=== PATIENT | male | born 1935 | race Caucasian/White ===

== ENCOUNTER 2019-03-09 15:17 | Inpatient (IN) ==
[2019-03-09 15:43] LABS: Hematocrit 43.1 % (42.0-52.0); Hemoglobin 14.4 gm/dL (13.5-18.0); Mean Cell Volume 90.7 fl (78-100); Mean Corpuscular Hemoglobin 30.3 pg (27-31); Mean Corpuscular Hgb Conc 33.4 g/dl (32-36); Mean Platelet Volume 8.7 fl (8-11.3); Neutrophil # 6.7 K/mm3 (1.3-6.0); Neutrophil % 85.9 % (42-75.0); Platelet Count 353 K/mm3 (150-450); Red Blood Count 4.75 M/mm3 (4.7-6.0); Red Cell Distribution Width 13.5 % (11.5-14.0); White Blood Count 7.8 K/mm3 (4.0-10.5)
[2019-03-09 15:49] LABS: Anion Gap 10.3 mmol/L (6.8-13.8); BUN/Creatinine Ratio 15.3 (9.0-21.6); Blood Urea Nitrogen 11 mg/dL (6-23); Calcium * 8.9 mg/dL (7.9-10.9); Carbon Dioxide 31.2 mmol/L (24-32.6); Chloride 92 mmol/L (97-106); Glucose * 109 mg/dL (70-110); Potassium 3.5 mmol/L (3.4-4.6); Sodium 130 mmol/L (132-142)
[2019-03-09] MEDS ORDERED: ALBUTEROL SULFATE/IPRATROPIUM 3 ML NEBU IH PRN (17:38)
--- NOTE | 2019-03-09 17:39 | PN ---
Progess Note - Interim Date: 03/09/19 Time: 17:36 Narrative: 03/09/19 17:36 I saw the patient in the Med-Surg floor. He was admitted for Pneumonitis/Pneumonia with persistent cough, progressive generalized weakness, decreased appetite and failed outpatient treatment. My findings and plans remain the same and my Clinic Notes will serve as my H & P for this admission.
[2019-03-09] MEDS: NORMAL SALINE 1,000 ML IV PRN (18:46)
[2019-03-09] MEDS: CEFEPIME HCL 2 GM in DEXTROSE 5 % IN WATER 100 ML IV SCH ×2 (18:48)
[2019-03-09] MEDS: AZITHROMYCIN 250 MG TABLET PO SCH (18:50)
[2019-03-09] MEDS ORDERED: AZITHROMYCIN 250 MG TABLET PO ONE (19:15)
[2019-03-09] MEDS: amLODIPine BESYLATE 5 MG TABLET PO SCH (20:07)
[2019-03-09] MEDS: HYDROcodone/CHLORPHEN P-STIREX 5 ML UDC PO SCH (20:07)
[2019-03-09] MEDS: METOPROLOL SUCCINATE 50 MG TABLET.SA PO SCH (20:07)
[2019-03-09] MEDS: ROSUVASTATIN CALCIUM 10 MG TABLET PO SCH (20:07)
[2019-03-09] MEDS: TRAVOPROST 25 DROP BTL EACHEYE SCH (20:09)
[2019-03-10] MEDS: NORMAL SALINE 1,000 ML IV PRN ×2 (03:09→13:05)
[2019-03-10] MEDS: CEFEPIME HCL 2 GM in DEXTROSE 5 % IN WATER 100 ML IV SCH ×4 (05:34→20:43)
[2019-03-10] MEDS: HYDROcodone/CHLORPHEN P-STIREX 5 ML UDC PO SCH ×2 (06:53→20:09)
--- NOTE | 2019-03-10 07:59 | PN ---
Subjective - Date and Time Seen Date: 03/10/19 Time: 07:36 Subjective Narrative: patient had desaturations in the 80's last night. still with cough and shortness of breath visibly. Objective - Review of Systems Generalized/Overall Review: Reports: Weakness. Denies: Chills, Fever EENTM: Denies: Blurred Vision Respiratory: Reports: Cough, Shortness of Breath Cardiac: Reports: Edema. Denies: Chest Pain, Palpitations Abdominal: Denies: Nausea, Vomiting, Abdominal Pain Genitourinary Symptoms: Denies: Urgency, Frequency Musculoskeletal Complaints: Reports: Joint Pain Neurological: Denies: Headache Skin: Denies: Lesions, Rash Endocrine: Denies: Intolerance to Cold, Intolerance to Heat Misc: All systems neg except as marked - Vitals Vitals: Last Vital Signs Temp 36.9 C 03/10/19 06:21 Pulse 75 03/10/19 06:21 Resp 20 03/10/19 06:21 BP 127/68 03/10/19 06:21 Pulse Ox 95 03/10/19 06:21 - Abnormal Lab Findings Abnormal Lab Findings: Abnormal Lab Results 03/09/19 03/09/19 Range/Units 15:28 15:28 Immature Gran % (Auto) 1.90 H (0.001-0.429) % Immature Gran # (Auto) 0.15 H (0.000-0.0310) K/mm3 Neutrophils % 85.9 H (42-75.0) % Lymphocytes % 4.5 L (20-51) % Neutrophils # 6.7 H (1.3-6.0) K/mm3 Lymphocytes # 0.35 L (1.5-3.5) k/mm3 Sodium 130 L (132-142) mmol/L Chloride 92 L (97-106) mmol/L - Exam Constitutional: Present: Alert, Oriented x3, Cooperative ENT Exam: Present: hearing grossly normal Neck: Present: supple. Absent: lymphadenopathy (R), lymphadenopathy (L) Respiratory: Present: decreased breath sounds, crackles, rhonchi, wheezing - occasional Cardiovascular/Chest: Present: regular rate, rhythm, no JVD, no murmur Abdomen: Present: Normal bowel sounds, soft, nontender, nondistended Extremity: Present: no calf tenderness, lower extremity edema - LLE Assessment/Plan Plan Narrative: Morro is an 83-year-old white male who was admitted from my office for failure of outpatient treatment patient. He continued to be short of breath, coughing, with generalized weakness and decreased appetite. He was admitted and started on IV cefepime and continued with his azithromycin. He started having some desaturation last night and was put on oxygen 2 L nasal cannula. He will be admitted to acute status from observation. - Problems/Diagnosis (1) Pneumonitis Problem: Acute (2) Weakness generalized Problem: Acute (3) Cough Problem: Acute (4) Hyponatremia Problem: Acute (5) THOMAS (obstructive sleep apnea) Problem: Acute (6) Hyperlipidemia Problem: Chronic (7) Hypertension Problem: Chronic Qualifiers: (8) History of coronary artery bypass surgery Problem: Resolved (9) History of surgery for malignant neoplasm Problem: Resolved (10) S/P lobectomy of lung Problem: Resolved
[2019-03-10] MEDS: AZITHROMYCIN 250 MG TABLET PO SCH (08:48)
[2019-03-10] MEDS: LOSARTAN POTASSIUM 50 MG TABLET PO SCH (08:49)
[2019-03-10] MEDS: METOPROLOL SUCCINATE 50 MG TABLET.SA PO SCH ×2 (08:49→20:08)
[2019-03-10] MEDS: HYDROCHLOROTHIAZIDE 12.5 MG CAPSULE PO SCH (08:50)
[2019-03-10] MEDS: FINASTERIDE 5 MG TABLET PO SCH (08:50)
[2019-03-10] MEDS: ACETAMINOPHEN 500 MG TABLET PO PRN ×2 (08:53→20:29)
[2019-03-10] MEDS ORDERED: TAMSULOSIN HCL 0.4 MG CAP.SR.24H PO SCH (09:00)
[2019-03-10] MEDS ORDERED: AZITHROMYCIN 250 MG TABLET PO SCH (09:00)
[2019-03-10 13:24] LABS: Hematocrit 41.6 % (42.0-52.0); Hemoglobin 13.7 gm/dL (13.5-18.0); Mean Cell Volume 92.2 fl (78-100); Mean Corpuscular Hemoglobin 30.4 pg (27-31); Mean Corpuscular Hgb Conc 32.9 g/dl (32-36); Mean Platelet Volume 8.6 fl (8-11.3); Neutrophil # 4.9 K/mm3 (1.3-6.0); Neutrophil % 81.6 % (42-75.0); Platelet Count 322 K/mm3 (150-450); Red Blood Count 4.51 M/mm3 (4.7-6.0); Red Cell Distribution Width 13.6 % (11.5-14.0); White Blood Count 6.1 K/mm3 (4.0-10.5)
[2019-03-10 13:32] LABS: Anion Gap 7.2 mmol/L (6.8-13.8); BUN/Creatinine Ratio 12.3 (9.0-21.6); Calcium * 8.8 mg/dL (7.9-10.9); Carbon Dioxide 32.1 mmol/L (24-32.6); Estimated Creat Clear 80.6; Potassium 3.3 mmol/L (3.4-4.6)
[2019-03-10] MEDS: BENZONATATE 100 MG CAPSULE PO PRN (14:34)
[2019-03-10] MEDS: TAMSULOSIN HCL 0.4 MG CAP.SR.24H PO SCH (17:54)
[2019-03-10] MEDS: TRAVOPROST 25 DROP BTL EACHEYE SCH (20:06)
[2019-03-10] MEDS: ROSUVASTATIN CALCIUM 10 MG TABLET PO SCH (20:07)
[2019-03-10] MEDS: amLODIPine BESYLATE 5 MG TABLET PO SCH (20:07)
[2019-03-11] MEDS: BENZONATATE 100 MG CAPSULE PO PRN (00:54)
[2019-03-11 01:30] LABS: Urine Appearance Clear (CLEAR); Urine Bilirubin Negative (NEGATIVE); Urine Blood Negative /ul (NEGATIVE); Urine Color Yellow; Urine Ketone Negative (NEGATIVE); Urine Nitrite Negative (NEGATIVE); Urine Protein Negative (NEGATIVE); Urine Specific Gravity 1.015 SP.GR. (1.005-1.030); Urine Urobilinogen Normal (NORMAL); Urine pH 5.5 pH (5.0-7.0)
[2019-03-11 01:31] LABS: Urine Bacteria None Seen; Urine RBC None Seen /hpf (0-5); Urine WBC None Seen /hpf (0-5)
[2019-03-11] MEDS: CEFEPIME HCL 2 GM in DEXTROSE 5 % IN WATER 100 ML IV SCH ×4 (05:00→18:00)
[2019-03-11 05:54] LABS: Hematocrit 39.5 % (42.0-52.0); Hemoglobin 13.1 gm/dL (13.5-18.0); Mean Cell Volume 93.4 fl (78-100); Mean Corpuscular Hgb Conc 33.2 g/dl (32-36); Mean Platelet Volume 9.4 fl (8-11.3); Neutrophil # 4.6 K/mm3 (1.3-6.0); Neutrophil % 76.4 % (42-75.0); Platelet Count 354 K/mm3 (150-450); Red Blood Count 4.23 M/mm3 (4.7-6.0); Red Cell Distribution Width 13.5 % (11.5-14.0)
[2019-03-11] MEDS: HYDROcodone/CHLORPHEN P-STIREX 5 ML UDC PO SCH ×2 (06:27→18:44)
[2019-03-11 06:39] LABS: Albumin * 2.3 gm/dl (3.4-5.0); Anion Gap 6.2 mmol/L (6.8-13.8); BUN/Creatinine Ratio 20.7 (9.0-21.6); Bilirubin, Total 0.4 mg/dL (0.0-1.1); Carbon Dioxide 30.8 mmol/L (24-32.6); Total Protein 6.2 gm/dL (6.2-8.2)
[2019-03-11] MEDS: METOPROLOL SUCCINATE 50 MG TABLET.SA PO SCH ×2 (08:29→20:39)
[2019-03-11] MEDS: LOSARTAN POTASSIUM 50 MG TABLET PO SCH (08:29)
[2019-03-11] MEDS: FINASTERIDE 5 MG TABLET PO SCH (08:29)
[2019-03-11] MEDS: AZITHROMYCIN 250 MG TABLET PO SCH (08:29)
[2019-03-11] MEDS: HYDROCHLOROTHIAZIDE 12.5 MG CAPSULE PO SCH (08:29)
--- NOTE | 2019-03-11 12:22 | PN ---
Subjective - Date and Time Seen Date: 03/11/19 Time: 12:19 Subjective Narrative: No acute events overnight. Patient states he is feeling better since admission. Discussed his lab results and advised that he was improving. Discussed goals of weaning off oxygen by time of discharge. She states that his appetite is improved, initially it was poor prior to admission. His only concern is if he could get something to help break up the mucus as he feels congested. Ad visedpatient will prescribe N-acetylcysteine and this to help to break down mucus. Intake and output diet baseline. No fever or chills. No chest pain or shortness of breath. No other acute concerns. Objective - Review of Systems Generalized/Overall Review: Reports: No Symptoms Reported Respiratory: Reports: Cough, Shortness of Breath, Other - Ingestion Cardiac: Denies: Chest Pain, Edema, Palpitations Abdominal: Denies: Abdominal Pain - Vitals Vitals: Last Vital Signs Temp 36.2 C 03/11/19 10:00 Pulse 69 03/11/19 10:00 Resp 20 03/11/19 10:00 BP 136/70 03/11/19 10:00 Pulse Ox 93 03/11/19 10:00 - Abnormal Lab Findings Abnormal Lab Findings: Abnormal Lab Results 03/10/19 03/10/19 03/11/19 Range/Units 13:20 13:20 05:00 RBC 4.51 L 4.23 L (4.7-6.0) M/mm3 Hgb 13.1 L (13.5-18.0) gm/dL Hct 41.6 L 39.5 L (42.0-52.0) % Immature Gran % (Auto) 3.30 H 4.20 H (0.001-0.429) % Immature Gran # (Auto) 0.20 H 0.25 H (0.000-0.0310) K/mm3 Neutrophils % 81.6 H 76.4 H (42-75.0) % Lymphocytes % 5.5 L 7.7 L (20-51) % Lymphocytes # 0.33 L 0.46 L (1.5-3.5) k/mm3 Sodium 131 L (132-142) mmol/L Potassium 3.3 L (3.4-4.6) mmol/L Chloride 95 L (97-106) mmol/L Anion Gap (6.8-13.8) mmol/L Est GFR (Non-Af Amer) (60-130) mL/min Random Glucose 114 H (70-110) mg/dL Albumin (3.4-5.0) gm/dl 03/11/19 Range/Units 05:00 RBC (4.7-6.0) M/mm3 Hgb (13.5-18.0) gm/dL Hct (42.0-52.0) % Immature Gran % (Auto) (0.001-0.429) % Immature Gran # (Auto) (0.000-0.0310) K/mm3 Neutrophils % (42-75.0) % Lymphocytes % (20-51) % Lymphocytes # (1.5-3.5) k/mm3 Sodium (132-142) mmol/L Potassium (3.4-4.6) mmol/L Chloride (97-106) mmol/L Anion Gap 6.2 L (6.8-13.8) mmol/L Est GFR (Non-Af Amer) 143 H D (60-130) mL/min Random Glucose (70-110) mg/dL Albumin 2.3 L (3.4-5.0) gm/dl - EKG/Xray Findings EKG: NSR EKG read: Reviewed by me - Exam Constitutional: Present: Alert, Oriented x3, Cooperative, No distress ENT Exam: Present: hearing grossly normal Neck: Present: non-tender, full range of motion, supple, normal inspection Respiratory: Present: normal breath sounds, no respiratory distress, no accessory muscle use, decreased breath sounds - Right lower lobe, crackles - Right lower lobe Cardiovascular/Chest: Present: normal peripheral pulses, regular rate, rhythm, no murmur, edema - 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 No edema of the right lower extremity. Abdomen: Present: Normal bowel sounds, soft, nontender Extremity: Present: normal range of motion, non-tender, normal inspection Skin Exam: Present: normal color, warm/dry Neurologic: Present: alert, oriented x 3 Appearance: Present: appropriate appearance Assessment/Plan Plan Narrative: (1) Pneumonia Problem: Acute - Due to failed outpatient treatment, decompensated to did not requiring oxygen. On 2 L nasal cannula and saturating greater than 92% on room air -We will order RT to wean off oxygen as tolerated. - Continue Azithromycin day # 4 and Cefepime day # 2 -Continue incentive spirometry every 1 hour while awake - (2) Weakness generalized Problem: Acute - Improving - Will probably need PT upon discharge - Consider ordering PT tomorrow for evaluation on Wednesday AM (3) Cough associated congestion Problem: Acute -Improving -We will prescribe Mucinex (4) Hyponatremia Problem: Resolved (5) THOMAS (obstructive sleep apnea) Problem: Suspected -Sleep study completed however needs to be repeated, concern for sleep apnea -Patient doing well here (6) Hyperlipidemia Problem: Chronic (7) Hypertension Problem: Chronic Qualifiers: (8) History of coronary artery bypass surgery Problem: Resolved (9) History of surgery for malignant neoplasm Problem: Resolved (10) S/P lobectomy of lung Problem: Resolved Fluids electrolytes nutrition: Heart healthy diet DVT prophylaxis: SCDS CODE STATUS: Full Code Disposition: Will continue to monitor patient and anticipate discharge within 24-48 hours. Will attempt to wean off oxygen over the next 24-48 hours. - Problems/Diagnosis (1) Pneumonia Problem: Acute Qualifiers: Pneumonia type: due to unspecified organism Laterality: right Lung location: middle lobe of lung Qualified Code(s): J18.9 - Pneumonia, unspecified organism (2) Generalized weakness Problem: Acute (3) Cough Problem: Acute (4) Hyponatremia Problem: Resolved (5) Hyperlipidemia Problem: Chronic Qualifiers: Hyperlipidemia type: mixed hyperlipidemia Qualified Code(s): E78.2 - Mixed hyperlipidemia (6) Hypertension Problem: Chronic Qualifiers: Hypertension type: essential hypertension Qualified Code(s): I10 - Essential (primary) hypertension (7) Urinary retention Problem: Chronic (8) THOMAS (obstructive sleep apnea) Problem: Chronic (9) History of coronary artery bypass surgery Problem: Resolved (10) History of surgery for malignant neoplasm Problem: Resolved (11) S/P lobectomy of lung Problem: Resolved
[2019-03-11] MEDS: TAMSULOSIN HCL 0.4 MG CAP.SR.24H PO SCH (17:28)
[2019-03-11] MEDS: ROSUVASTATIN CALCIUM 10 MG TABLET PO SCH (20:39)
[2019-03-11] MEDS: amLODIPine BESYLATE 5 MG TABLET PO SCH (20:39)
[2019-03-11] MEDS: TRAVOPROST 25 DROP BTL EACHEYE SCH (20:40)
[2019-03-12] MEDS: CEFEPIME HCL 2 GM in DEXTROSE 5 % IN WATER 100 ML IV SCH ×4 (05:05→17:21)
[2019-03-12 05:23] LABS: Hematocrit 39.8 % (42.0-52.0); Hemoglobin 13.1 gm/dL (13.5-18.0); Mean Cell Volume 94.5 fl (78-100); Mean Corpuscular Hemoglobin 31.1 pg (27-31); Mean Corpuscular Hgb Conc 32.9 g/dl (32-36); Mean Platelet Volume 8.9 fl (8-11.3); Platelet Count 330 K/mm3 (150-450); Red Blood Count 4.21 M/mm3 (4.7-6.0); Red Cell Distribution Width 13.6 % (11.5-14.0); White Blood Count 10.1 K/mm3 (4.0-10.5)
[2019-03-12 05:39] LABS: Total Cells Counted 100
[2019-03-12 05:52] LABS: Albumin * 2.4 gm/dl (3.4-5.0); Anion Gap 6.2 mmol/L (6.8-13.8); BUN/Creatinine Ratio 21.9 (9.0-21.6); Bilirubin, Total 0.6 mg/dL (0.0-1.1); Carbon Dioxide 30.9 mmol/L (24-32.6); Potassium 4.1 mmol/L (3.4-4.6); Total Protein 6.4 gm/dL (6.2-8.2)
[2019-03-12] MEDS: ACETAMINOPHEN 500 MG TABLET PO PRN (05:53)
[2019-03-12 06:12] LABS: Atypical (Reactive) Lymph 4 % (0-2); Lymphocyte 12 % (20-51); Monocyte 7 % (0-9); Neutrophil 77 % (42-75); Neutrophil # 7.8 K/mm3 (1.3-6.0); Platelet Estimate Normal (NORMAL); RBC Morphology Normal (NORMAL)
[2019-03-12] MEDS: HYDROcodone/CHLORPHEN P-STIREX 5 ML UDC PO SCH ×2 (06:24→19:15)
--- NOTE | 2019-03-12 06:46 | PN ---
Subjective - Date and Time Seen Date: 03/12/19 Time: 08:00 Subjective Narrative: Patient states that he did not have a good night. Patient was left in the chair overnight. States he expected the nursing staff to come back and put him into bed. However he was told that he was found sleeping on the chair and they did not want to disturb him. Despite not being able to sleep in his bed, patient states he is feels better overall. Appetite is good and back to baseline. Intake and output at baseline. Denies fever or chills. Denies shortness of breath or chest pain. Denies congestion. Discussed about his management, and attempt weaning off oxygen and switching to p.o. antibiotics and ordering PT evaluation and treatment. Patient voiced understanding agreeable plan. Objective - Review of Systems Generalized/Overall Review: Reports: Weakness. Denies: Chills, Fever Respiratory: Reports: Cough. Denies: Shortness of Breath Cardiac: Denies: Chest Pain, Edema, Palpitations Abdominal: Reports: Abdominal Pain. Denies: Nausea, Vomiting - Vitals Vitals: Last Vital Signs Temp 36.5 C 03/12/19 06:30 Pulse 64 03/12/19 06:30 Resp 16 03/12/19 06:30 BP 132/67 03/12/19 06:30 Pulse Ox 96 03/12/19 06:30 - Abnormal Lab Findings Abnormal Lab Findings: Abnormal Lab Results 03/12/19 03/12/19 Range/Units 04:55 04:55 RBC 4.21 L (4.7-6.0) M/mm3 Hgb 13.1 L (13.5-18.0) gm/dL Hct 39.8 L (42.0-52.0) % MCH 31.1 H (27-31) pg Neutrophils % (Manual) 77 H (42-75) % Lymphocytes % (Manual) 12 L (20-51) % Neutrophils # (Manual) 7.8 H (1.3-6.0) K/mm3 Lymphocytes # (Manual) 1.2 L (1.5-3.5) k/mm3 Atypic/Reactive Lymphs 4 H (0-2) % Anion Gap 6.2 L (6.8-13.8) mmol/L BUN/Creatinine Ratio 21.9 H (9.0-21.6) Albumin 2.4 L (3.4-5.0) gm/dl - Exam Constitutional: Present: Alert, Oriented x3, Cooperative, Well developed, Well nourished ENT Exam: Present: hearing grossly normal Neck: Present: non-tender, full range of motion, supple Respiratory: Present: lungs clear, normal breath sounds, no respiratory distress, no accessory muscle use Cardiovascular/Chest: Present: normal peripheral pulses, regular rate, rhythm, no chest tenderness, no edema - Of left leg, edema - 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 Skin Exam: Present: normal color, warm/dry Lymphatic: Present: no adenopathy Neurologic: Present: alert, oriented x 3 Appearance: Present: appropriate appearance Assessment/Plan Plan Narrative: Assessment/Plan (1) Pneumonia Problem: Acute - Due to failed outpatient treatment, - RT to wean off oxygen as tolerated. - Continue Azithromycin day # 5 and continue cefepime day #3, and. Patient to be discharged tomorrow morning -Continue incentive spirometry every 1 hour while awake - (2) Weakness generalized Problem: Acute - Improving -PT eval and treat, await recommendations (3) Cough associated congestion Problem: Acute -Improving -Continue Mucinex as needed (4) Hyponatremia Problem: Resolved (5) THOMAS (obstructive sleep apnea) Problem: Suspected -Sleep study completed however needs to be repeated, concern for sleep apnea -Patient doing well here (6) Hyperlipidemia Problem: Chronic (7) Hypertension Problem: Chronic -Blood pressure on the lower end along with pulse. -Hold blood pressure medications of hydrochlorothiazide 12.5 mg p.o. daily, losartan 50 mg p.o. daily and metoprolol 50 mg p.o. twice daily. Resume med ications tomorrow. If patient becomes hypotensive or tachycardic will will advise nurse to notify me and will resume 1 of the blood pressure medications. Medication dose adjustments may be considered upon discharge. Fluids electrolytes nutrition: Heart healthy diet DVT prophylaxis: SCDS CODE STATUS: Full Code Disposition: Will continue to monitor patient and anticipate discharge within 24-48 hours. Will attempt to wean off oxygen over the next 24-48 hours. Follow-up PT recommendations. Consider transitioning to oral antibiotics. Resume blood pressure medications tomorrow morning. - Problems/Diagnosis (1) Pneumonia Problem: Acute Qualifiers: Pneumonia type: due to unspecified organism Laterality: right Lung location: middle lobe of lung Qualified Code(s): J18.9 - Pneumonia, unspecified organism (2) Generalized weakness Problem: Acute (3) Cough Problem: Acute (4) Hyponatremia Problem: Resolved (5) Hyperlipidemia Problem: Chronic Qualifiers: Hyperlipidemia type: mixed hyperlipidemia Qualified Code(s): E78.2 - Mixed hyperlipidemia (6) Hypertension Problem: Chronic Qualifiers: Hypertension type: essential hypertension Qualified Code(s): I10 - Essential (primary) hypertension (7) Urinary retention Problem: Chronic (8) THOMAS (obstructive sleep apnea) Problem: Chronic
[2019-03-12] MEDS: AZITHROMYCIN 250 MG TABLET PO SCH (08:59)
[2019-03-12] MEDS: FINASTERIDE 5 MG TABLET PO SCH (08:59)
[2019-03-12] MEDS: LOSARTAN POTASSIUM 50 MG TABLET PO SCH (09:05)
[2019-03-12] MEDS: METOPROLOL SUCCINATE 50 MG TABLET.SA PO SCH (09:05)
[2019-03-12] MEDS: HYDROCHLOROTHIAZIDE 12.5 MG CAPSULE PO SCH (09:05)
[2019-03-12] MEDS ORDERED: AZITHROMYCIN 250 MG TABLET PO SCH (09:45)
[2019-03-12] MEDS: TAMSULOSIN HCL 0.4 MG CAP.SR.24H PO SCH (17:21)
[2019-03-12] MEDS: ROSUVASTATIN CALCIUM 10 MG TABLET PO SCH (21:03)
[2019-03-12] MEDS: amLODIPine BESYLATE 5 MG TABLET PO SCH (21:04)
[2019-03-12] MEDS: TRAVOPROST 25 DROP BTL EACHEYE SCH (21:05)
[2019-03-13] MEDS: ACETAMINOPHEN 500 MG TABLET PO PRN (03:12)
[2019-03-13] MEDS: CEFEPIME HCL 2 GM in DEXTROSE 5 % IN WATER 100 ML IV SCH ×4 (04:47→16:47)
[2019-03-13 05:30] LABS: Hematocrit 36.4 % (42.0-52.0); Hemoglobin 11.9 gm/dL (13.5-18.0); Mean Cell Volume 93.3 fl (78-100); Mean Corpuscular Hemoglobin 30.5 pg (27-31); Mean Corpuscular Hgb Conc 32.7 g/dl (32-36); Platelet Count 288 K/mm3 (150-450); Red Cell Distribution Width 13.6 % (11.5-14.0); White Blood Count 7.6 K/mm3 (4.0-10.5)
[2019-03-13 05:44] LABS: Total Cells Counted 100
[2019-03-13 05:47] LABS: Albumin * 2.3 gm/dl (3.4-5.0); Anion Gap 5.9 mmol/L (6.8-13.8); BUN/Creatinine Ratio 27.4 (9.0-21.6); Bilirubin, Total 0.5 mg/dL (0.0-1.1); Ca. Corrected For Albumin 9.9 mg/dL (8.4-10.2); Calcium * 8.9 mg/dL (7.9-10.9); Carbon Dioxide 32.8 mmol/L (24-32.6); Potassium 3.7 mmol/L (3.4-4.6); Total Protein 5.8 gm/dL (6.2-8.2)
[2019-03-13 05:50] LABS: Atypical (Reactive) Lymph 4 % (0-2); Dohle Bodies 3+; Eosinophil 4 % (0-3); Lymphocyte 6 % (20-51); Monocyte 6 % (0-9); Neutrophil 80 % (42-75); Neutrophil # 6.1 K/mm3 (1.3-6.0); Platelet Estimate Normal (NORMAL)
[2019-03-13] MEDS: HYDROcodone/CHLORPHEN P-STIREX 5 ML UDC PO SCH ×2 (06:38→18:50)
[2019-03-13] MEDS: FINASTERIDE 5 MG TABLET PO SCH (08:31)
[2019-03-13] MEDS ORDERED: AZITHROMYCIN 250 MG TABLET PO SCH (09:00)
--- NOTE | 2019-03-13 09:03 | DS ---
(1) Pneumonitis Problem: Acute (2) Weakness generalized Problem: Acute (3) Cough Problem: Acute (4) Hyponatremia Problem: Resolved (5) THOMAS (obstructive sleep apnea) Problem: Acute (6) Hyperlipidemia Problem: Chronic Qualifiers: Hyperlipidemia type: mixed hyperlipidemia Qualified Code(s): E78.2 - Mixed hyperlipidemia (7) Hypertension Problem: Chronic Qualifiers: (8) History of coronary artery bypass surgery Problem: Resolved (9) History of surgery for malignant neoplasm Problem: Resolved (10) S/P lobectomy of lung Problem: Resolved Date of Discharge:: 03/13/19 Description of Stay: Morro Mitchell is an 83 year old male patient who presented to the clinic on 2018 for a bad cough, weakness, no appetite. He had labs were done prior to appointment. He is on Azithromycin . 14 days prior to admission the patient was seen by our walk-in clinic for cough and was diagnosed with viral URI and was given Tessalon Perles. 6 days prior to admission the patient was seen by ear nose and throat for hoarseness and chronic cough and was diagnosed with bronchitis and CXR showed increased prominence of of the right hilum/peritracheal region which could be due to technique versus lymphadenopathy. Recommend CT scan. He was started on Ceftin ear 300 mg 2 capsules p.o. daily for 10 days. 2 days prior to admission the patient was sent to the emergency room by Dr. Contreras for weakness, coughing. to low salt and potassium. Given potassium and a CT scan was done. It showed patchy groundglass densities in the left lung field suspicious for pneumonitis or developing pneumonia correlate clinically. He was given azithromycin and his c efdinir was stopped. The patient did not improve clinically he is feeling so weak with persistent cough and no appetite at all. 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 He has had several chemotherapies radiotherapist for his leiomyosarcoma. His labs done showed a WBC count of 7.8, hemoglobin of 14.4, immature granulocytes 1.90, segmented neutrophils of 83%, sodium of 130 from 129, potassium of 3.5 from 2.9, GFR of 111, creatinine 1.72, glucose of 109. His chest x-ray showed stable posttreatment related changes in the right hemithorax no acute cardiopulmonary abnormality identified. Due to failure of outpatient treatment and likely immunodeficiency nthe patient was admitted for observation and initial IV antibiotics. He desaturated overnight and he was placed on O2 to keep O2 saturation above 93% as he has a H/O CAD s/p CABG x 5. He was placed on IV cefepime and his Azithromycin was continued. His appetite is back , he is less weak and his cough has improved. Will ambulate him and if his O2 drops down to 88% or below will discharge him on home O2. ADDENDUM: Morro's O2 dropped down to 86 %w/o O2. His insurance will not cover Home O2. Will cancel his discharge for now and hopefully with with the continuance of his IV antibiotics we will be able to wean him off his O2. 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 This will serve as my Progress notes for now. Procedures Performed: none Results and Findings: Pending Mircobiology Results 03/09/19 18:05 Blood Blood Culture - Preliminary NO GROWTH AFTER 48 HOURS 03/09/19 17:05 Blood Blood Culture - Preliminary NO GROWTH AFTER 48 HOURS Lab Pending Results 03/09/19 15:28: WBC 7.8 D, RBC 4.75, Hgb 14.4, Hct 43.1, MCV 90.7, MCH 30.3, MCHC 33.4, RDW 13.5, Plt Count 353, MPV 8.7, Immature Gran % (Auto) 1.90 H, Immature Gran # (Auto) 0.15 H, Neutrophils % 85.9 H, Lymphocytes % 4.5 L, Monocytes % 6.2, Eosinophils % 0.9, Basophils % 0.6, Nucleated RBC % 0.0, Neutrophils # 6.7 H, Lymphocytes # 0.35 L, Monocytes # 0.5, Eosinophils # 0.1, Absolute Basophils 0.1 03/09/19 15:28: Sodium 130 L, Plasma Sodium 130, Potassium 3.5 D, Chloride 92 L, Carbon Dioxide 31.2, Anion Gap 10.3, BUN 11, Creatinine 0.72, Est GFR (Non-Af Amer) 111, BUN/Creatinine Ratio 15.3, Random Glucose 109, Calcium 8.9 03/09/19 20:32: Urine Legionella Ag Not detected 03/10/19 13:20: WBC 6.1 D, RBC 4.51 L, Hgb 13.7, Hct 41.6 L, MCV 92.2, MCH 30.4, MCHC 32.9, RDW 13.6, Plt Count 322, MPV 8.6, Immature Gran % (Auto) 3.30 H, Immature Gran # (Auto) 0.20 H, Neutrophils % 81.6 H, Lymphocytes % 5.5 L, Monocytes % 6.9, Eosinophils % 2.0, Basophils % 0.7, Nucleated RBC % 0.0, Neutrophils # 4.9, Lymphocytes # 0.33 L, Monocytes # 0.4, Eosinophils # 0.1, Absolute Basophils 0.0 03/10/19 13:20: Sodium 131 L, Plasma Sodium 131, Potassium 3.3 L, Chloride 95 L, Carbon Dioxide 32.1, Anion Gap 7.2, BUN 9, Creatinine 0.73, Est GFR (Non-Af Amer) 109, BUN/Creatinine Ratio 12.3, Random Glucose 114 H, Calcium 8.8 03/11/19 05:00: WBC 6.0, RBC 4.23 L, Hgb 13.1 L, Hct 39.5 L, MCV 93.4, MCH 31.0, MCHC 33.2, RDW 13.5, Plt Count 354, MPV 9.4, Immature Gran % (Auto) 4.20 H, Immature Gran # (Auto) 0.25 H, Neutrophils % 76.4 H, Lymphocytes % 7.7 L, Monocytes % 8.2, Eosinophils % 2.5, Basophils % 1.0, Nucleated RBC % 0.0, Neutrophils # 4.6, Lymphocytes # 0.46 L, Monocytes # 0.5, Eosinophils # 0.2, Absolute Basophils 0.1 03/11/19 05:00: Sodium 132, Plasma Sodium 132, Potassium 4.0 D, Chloride 99, Carbon Dioxide 30.8, Anion Gap 6.2 L, BUN 12, Creatinine 0.58, Est GFR (Non-Af Amer) 143 H D, BUN/Creatinine Ratio 20.7, Random Glucose 95, Calcium 9.0, Calcium Adj for Albumin 10.0, Total Bilirubin 0.4, AST 38, ALT 22, Alkaline Phosphatase 89, Total Protein 6.2, Albumin 2.3 L 03/11/19 : Urine Color Yellow, Urine Appearance Clear, Urine pH 5.5, Ur Specific Cyrus 1.015, Urine Protein Negative, Urine Glucose (UA) Negative, Urine Ketones Negative, Urine Blood Negative, Urine Nitrate Negative, Urine Bilirubin Negative, Urine Urobilinogen Normal, Ur Leukocyte Esterase Negative, Urine RBC None seen, Urine WBC None seen, Ur Epithelial Cells None seen, Urine Bacteria None seen 03/12/19 04:55: WBC 10.1 D, RBC 4.21 L, Hgb 13.1 L, Hct 39.8 L, MCV 94.5, MCH 31.1 H, MCHC 32.9, RDW 13.6, Plt Count 330, MPV 8.9, Neutrophils % (Manual) 77 H, Lymphocytes % (Manual) 12 L, Monocytes % (Manual) 7, Neutrophils # (Manual) 7.8 H, Lymphocytes # (Manual) 1.2 L, Monocytes # (Manual) 0.7, Atypic/Reactive Lymphs 4 H, Platelet Estimate Normal, RBC Morphology Normal 03/12/19 04:55: Sodium 133, Plasma Sodium 133, Potassium 4.1, Chloride 100, Carbon Dioxide 30.9, Anion Gap 6.2 L, BUN 14, Creatinine 0.64, Est GFR (Non-Af Amer) 127, BUN/Creatinine Ratio 21.9 H, Random Glucose 110, Calcium 9.0, Calcium Adj for Albumin 10.0, Total Bilirubin 0.6, AST 38, ALT 20, Alkaline Phosphatase 95, Total Protein 6.4, Albumin 2.4 L 03/13/19 05:00: WBC 7.6 D, RBC 3.90 L, Hgb 11.9 L, Hct 36.4 L, MCV 93.3, MCH 30.5, MCHC 32.7, RDW 13.6, Plt Count 288, MPV 9.0, Neutrophils % (Manual) 80 H, Lymphocytes % (Manual) 6 L, Monocytes % (Manual) 6, Eosinophils % (Manual) 4 H, Neutrophils # (Manual) 6.1 H, Lymphocytes # (Manual) 0.5 L, Monocytes # (Manual) 0.5, Eosinophils # (Manual) 0.3, Atypic/Reactive Lymphs 4 H, Dohle Bodies 3+, Platelet Estimate Normal 03/13/19 05:00: Sodium 133, Plasma Sodium 133, Potassium 3.7, Chloride 98, Carbon Dioxide 32.8 H, Anion Gap 5.9 L, BUN 17, Creatinine 0.62, Est GFR (Non-Af Amer) 132 H, BUN/Creatinine Ratio 27.4 H, Random Glucose 114 H, Calcium 8.9, Calcium Adj for Albumin 9.9, Total Bilirubin 0.5, AST 20, ALT 20, Alkaline Phosphatase 86, Total Protein 5.8 L, Albumin 2.3 L Discharge Location: Home Disposition: Home self-care Condition: Stable Discharge Activity: Activity as tolerated Discharge Diet: Low fat/chol Referrals: Mo Treviño MD [Primary Care Provider] - Additional Patient Instructions (free text): Follow up with PCP in 1 week, Complete Home Medications List: Complete Home Medication List: Atorvastatin Calcium [Lipitor] 20 mg PO HS 09/21/14 Finasteride [Proscar] 5 mg PO DAILY 09/21/14 Losartan/Hydrochlorothiazide [Hyzaar 50-12.5 Tablet] 1 ea PO DAILY 09/21/14 Metoprolol Succinate [Toprol Xl] 50 mg PO BID 09/21/14 Acetaminophen [Tylenol] 1,000 mg PO Q8H PRN #0 11/27/14 amLODIPine BESYLATE [Norvasc] 5 mg PO HS #0 11/27/14 tamsulosin 0.4 mg capsule 1 cap PO DAILY #30 cap 11/28/18 azithromycin 250 mg tablet 250 mg PO .COMPLEX #6 tab 03/07/19 cefdinir 300 mg capsule 300 mg PO BID 03/07/19 Benzonatate 200 mg PO TID PRN 03/09/19 HYDROcodone/CHLORPHEN P-STIREX [Hydrocodone-Chlorphen ER Susp] 5 ml PO Q12H 03/09/19 Travoprost [Travatan Z] 1 drp CAIT HS 03/09/19
[2019-03-13] MEDS: TAMSULOSIN HCL 0.4 MG CAP.SR.24H PO SCH (17:32)
[2019-03-13] MEDS: METOPROLOL SUCCINATE 50 MG TABLET.SA PO SCH (20:30)
[2019-03-13] MEDS: amLODIPine BESYLATE 5 MG TABLET PO SCH (20:31)
[2019-03-13] MEDS: ROSUVASTATIN CALCIUM 10 MG TABLET PO SCH (20:32)
[2019-03-13] MEDS: TRAVOPROST 25 DROP BTL EACHEYE SCH (20:32)
[2019-03-14] MEDS: CEFEPIME HCL 2 GM in DEXTROSE 5 % IN WATER 100 ML IV SCH ×4 (04:28→17:18)
[2019-03-14] MEDS: ACETAMINOPHEN 500 MG TABLET PO PRN (05:32)
[2019-03-14] MEDS: HYDROcodone/CHLORPHEN P-STIREX 5 ML UDC PO SCH ×2 (07:24→20:47)
[2019-03-14] MEDS: HYDROCHLOROTHIAZIDE 12.5 MG CAPSULE PO SCH (09:07)
[2019-03-14] MEDS: FINASTERIDE 5 MG TABLET PO SCH (09:07)
[2019-03-14] MEDS: LOSARTAN POTASSIUM 50 MG TABLET PO SCH (09:08)
[2019-03-14] MEDS: METOPROLOL SUCCINATE 50 MG TABLET.SA PO SCH ×2 (09:08→20:44)
--- NOTE | 2019-03-14 10:18 | PN ---
Subjective - Date and Time Seen Date: 03/14/19 Time: 10:14 Subjective Narrative: patient continues to need O2 to keep sats above 93%. Objective - Review of Systems Generalized/Overall Review: Reports: Weakness - significantly improved. Denies: Chills, Fever EENTM: Denies: Blurred Vision Respiratory: Reports: Cough - significantly improved, Shortness of Breath - siginificantly improved Cardiac: Reports: Edema. Denies: Chest Pain, Palpitations Abdominal: Denies: Nausea, Vomiting Genitourinary Symptoms: Denies: Urgency, Frequency Musculoskeletal Complaints: Reports: Joint Pain, Muscle Pain Neurological: Denies: Headache Skin: Denies: Lesions, Rash - Vitals Vitals: Last Vital Signs Temp 36.7 C 03/14/19 06:29 Pulse 77 03/14/19 09:08 Resp 16 03/14/19 06:29 BP 149/70 03/14/19 09:08 Pulse Ox 95 03/14/19 06:29 - Exam Constitutional: Present: Alert, Oriented x3, Cooperative, Elderly ENT Exam: Present: hearing grossly normal Neck: Present: full range of motion. Absent: lymphadenopathy (R), lymphadenopathy (L) Respiratory: Present: decreased breath sounds - RLLF, No rales, No wheezing Cardiovascular/Chest: Present: regular rate, rhythm, no JVD, no murmur Abdomen: Present: Normal bowel sounds, soft, nontender, nondistended Extremity: Present: no calf tenderness, lower extremity edema - LLE Assessment/Plan Plan Narrative: Morro continues to have low O2 sats w/o O2. Insurance will not cover for Home O2. Will get a follow up CXR today. Will get an ABG. ADDENDUM: His CXr showed stable findings. His ABG showed 7.37/56/82/32.2/95% at 2 L NC. 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 His recent pneumonia is also increasing his demand for O2. It is possible that he also has underlying COPD but will need a PFT on outpatient basis when he is much better. - Problems/Diagnosis (1) Respiratory failure with hypoxia and hypercapnia Problem: Acute Qualifiers: Chronicity: acute on chronic Qualified Code(s): J96.21 - Acute and chronic respiratory failure with hypoxia; J96.22 - Acute and chronic respiratory failure with hypercapnia (2) Pneumonitis Problem: Acute Narrative: with beginning pneumonia on CTS (3) Weakness generalized Problem: Acute (4) Cough Problem: Acute (5) Hyponatremia Problem: Resolved (6) THOMAS (obstructive sleep apnea) Problem: Acute (7) Hyperlipidemia Problem: Chronic Qualifiers: Hyperlipidemia type: mixed hyperlipidemia Qualified Code(s): E78.2 - Mixed hyperlipidemia (8) Hypertension Problem: Chronic Qualifiers: (9) History of coronary artery bypass surgery Problem: Resolved (10) History of surgery for malignant neoplasm Problem: Resolved (11) S/P lobectomy of lung Problem: Resolved
[2019-03-14] MEDS ORDERED: ALBUTEROL SULFATE 2.5 MG/0.5 ML VIAL.NEB IH PRN (14:23)
[2019-03-14] MEDS ORDERED: ALBUTEROL SULFATE/IPRATROPIUM 3 ML NEBU IH ONE (14:26)
[2019-03-14] MEDS: TAMSULOSIN HCL 0.4 MG CAP.SR.24H PO SCH (17:21)
[2019-03-14] MEDS: ROSUVASTATIN CALCIUM 10 MG TABLET PO SCH (20:43)
[2019-03-14] MEDS: amLODIPine BESYLATE 5 MG TABLET PO SCH (20:43)
[2019-03-14] MEDS: TRAVOPROST 25 DROP BTL EACHEYE SCH (20:44)
[2019-03-15] MEDS: CEFEPIME HCL 2 GM in DEXTROSE 5 % IN WATER 100 ML IV SCH ×4 (04:07→16:31)
[2019-03-15] MEDS: HYDROcodone/CHLORPHEN P-STIREX 5 ML UDC PO SCH (06:45)
[2019-03-15] MEDS: LOSARTAN POTASSIUM 50 MG TABLET PO SCH (08:22)
[2019-03-15] MEDS: HYDROCHLOROTHIAZIDE 12.5 MG CAPSULE PO SCH (08:22)
[2019-03-15] MEDS: FINASTERIDE 5 MG TABLET PO SCH (08:24)
[2019-03-15] MEDS: METOPROLOL SUCCINATE 50 MG TABLET.SA PO SCH (08:24)
--- NOTE | 2019-03-15 08:44 | PN ---
Progesteresa Note - Interim Date: 03/15/19 Time: 08:38 Narrative: 03/15/19 08:38 His ABG showed hypercapnea nad hyposemia. Patient says he never smoked but he was exposed to second hand smoking. hHe remembers the cloud in his dad's truck. He says that he received RTX to his legs but does not remember receiving it to his lungs. He did get 3 CTX but I am not sure what the agents were and if they can cause pulmonary fibrosis to the lung. His O2 saturation did improve with Duoneb indicating good response to Bronhodilator. I will treat him as COPD r/o Chronic RLD.
--- NOTE | 2019-03-15 08:50 | DS ---
(1) Respiratory failure with hypoxia and hypercapnia Diagnosis(s): due to COPD r/o RLD Problem: Chronic Qualifiers: Chronicity: chronic Qualified Code(s): J96.11 - Chronic respiratory failure with hypoxia; J96.12 - Chronic respiratory failure with hypercapnia (2) Pneumonitis Problem: Acute (3) Weakness generalized Problem: Resolved (4) Cough Problem: Acute (5) Hyponatremia Problem: Resolved (6) THOMAS (obstructive sleep apnea) Problem: Chronic (7) Hyperlipidemia Problem: Chronic Qualifiers: Hyperlipidemia type: mixed hyperlipidemia Qualified Code(s): E78.2 - Mixed hyperlipidemia (8) Hypertension Problem: Chronic Qualifiers: (9) History of coronary artery bypass surgery Problem: Resolved (10) History of surgery for malignant neoplasm Problem: Resolved (11) S/P lobectomy of lung Problem: Resolved (12) COPD (chronic obstructive pulmonary disease) Problem: Chronic Qualifiers: COPD type: unspecified COPD Qualified Code(s): J44.9 - Chronic obstructive pulmonary disease, unspecified Date of Discharge:: 03/15/19 Description of Stay: Morro Mitchell is an 83 year old male patient who presented to the clinic on 2018 for a bad cough, weakness, no appetite. He had labs were done prior to appointment. He was on Azithromycin . 14 days prior to admission the patient was seen by our walk-in clinic for cough and was diagnosed with viral URI and was given Tessalon Perles. 6 days prior to admission the patient was seen by ear nose and throat for hoarseness and chronic cough and was diagnosed with bronchitis and CXR showed increased prominence of of the right hilum/peritracheal region which could be due to technique versus lymphadenopathy. Recommend CT scan. He was started on Ceftin by ENT 300 mg 2 capsules p.o. daily for 10 days. 2 days prior to admission the patient was sent to the emergency room by Dr. Contreras for weakness, coughing, low salt and potassium. He was given potassium and a CT scan was done. It showed patchy groundglass densities in the left lung field suspicious for pneumonitis or developing pneumonia correlate clinically. He was given azithromycin and his cefdinir was stopped by ED. The patient did not improve clinically. He was still feeling so weak with persistent cough and no appetite at all. 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 He has had several chemotherapies and radiotherapy for his leiomyosarcoma. He had a right lobe resection for metastatic disease. His labs done showed a WBC count of 7.8, hemoglobin of 14.4, immature granulocytes 1.90, segmented neutrophils of 83%, sodium of 130 from 129, potassium of 3.5 from 2.9, GFR of 111, creatinine 1.72, glucose of 109. His chest x-ray showed stable posttreatment related changes in the right hemithorax, no acute cardiopulmonary abnormality identified. Due to failure of outpatient treatment and likely immunodeficiency, the patient was admitted for observation and started on IV antibiotics. He desaturated overnight and he was placed on O2 to keep O2 saturation above 93% as he has a H/O CAD s/p CABG x 5. He was placed on IV cefepime and his Azithromycin was continued. His appetite is back , he is less weak and his cough has improved. His O2 drops down to 80's when he in RA or ambulates. The patient says he never smoked but he was exposed to second hand smoking. He remembers the cloud in his dad's truck. He says that he received RTX to his legs but does not remember receiving it to his lungs. He did get 3 CTX but I am not sure what the agents are and if can cause pulmonary fibrosis to the lung and cause RLD. His O2 saturation did improve with Duoneb indicating good response to Bronchodilator. I will treat him as COPD that was undiagnosed before until he got pneumonia which had further decreased his pulmonary reserve. We will discharge him on Duoneb and Ventolin inhaler PRN and O2 1.5 L NC to keep O2 saturation above 93%. Procedures Performed: none Results and Findings: Lab Pending Results 03/09/19 15:28: WBC 7.8 D, RBC 4.75, Hgb 14.4, Hct 43.1, MCV 90.7, MCH 30.3, MCHC 33.4, RDW 13.5, Plt Count 353, MPV 8.7, Immature Gran % (Auto) 1.90 H, Immature Gran # (Auto) 0.15 H, Neutrophils % 85.9 H, Lymphocytes % 4.5 L, Monocytes % 6.2, Eosinophils % 0.9, Basophils % 0.6, Nucleated RBC % 0.0, Neutrophils # 6.7 H, Lymphocytes # 0.35 L, Monocytes # 0.5, Eosinophils # 0.1, Absolute Basophils 0.1 03/09/19 15:28: Sodium 130 L, Plasma Sodium 130, Potassium 3.5 D, Chloride 92 L, Carbon Dioxide 31.2, Anion Gap 10.3, BUN 11, Creatinine 0.72, Est GFR (Non-Af Amer) 111, BUN/Creatinine Ratio 15.3, Random Glucose 109, Calcium 8.9 03/09/19 20:32: Urine Legionella Ag Not detected 03/10/19 13:20: WBC 6.1 D, RBC 4.51 L, Hgb 13.7, Hct 41.6 L, MCV 92.2, MCH 30.4, MCHC 32.9, RDW 13.6, Plt Count 322, MPV 8.6, Immature Gran % (Auto) 3.30 H, Immature Gran # (Auto) 0.20 H, Neutrophils % 81.6 H, Lymphocytes % 5.5 L, Monocytes % 6.9, Eosinophils % 2.0, Basophils % 0.7, Nucleated RBC % 0.0, Neutrophils # 4.9, Lymphocytes # 0.33 L, Monocytes # 0.4, Eosinophils # 0.1, Absolute Basophils 0.0 03/10/19 13:20: Sodium 131 L, Plasma Sodium 131, Potassium 3.3 L, Chloride 95 L, Carbon Dioxide 32.1, Anion Gap 7.2, BUN 9, Creatinine 0.73, Est GFR (Non-Af Amer) 109, BUN/Creatinine Ratio 12.3, Random Glucose 114 H, Calcium 8.8 03/11/19 05:00: WBC 6.0, RBC 4.23 L, Hgb 13.1 L, Hct 39.5 L, MCV 93.4, MCH 31.0, MCHC 33.2, RDW 13.5, Plt Count 354, MPV 9.4, Immature Gran % (Auto) 4.20 H, Immature Gran # (Auto) 0.25 H, Neutrophils % 76.4 H, Lymphocytes % 7.7 L, Monocytes % 8.2, Eosinophils % 2.5, Basophils % 1.0, Nucleated RBC % 0.0, Neutrophils # 4.6, Lymphocytes # 0.46 L, Monocytes # 0.5, Eosinophils # 0.2, Absolute Basophils 0.1 03/11/19 05:00: Sodium 132, Plasma Sodium 132, Potassium 4.0 D, Chloride 99, Carbon Dioxide 30.8, Anion Gap 6.2 L, BUN 12, Creatinine 0.58, Est GFR (Non-Af Amer) 143 H D, BUN/Creatinine Ratio 20.7, Random Glucose 95, Calcium 9.0, Calcium Adj for Albumin 10.0, Total Bilirubin 0.4, AST 38, ALT 22, Alkaline Phosphatase 89, Total Protein 6.2, Albumin 2.3 L 03/11/19 : Urine Color Yellow, Urine Appearance Clear, Urine pH 5.5, Ur Specific [place] 1.015, Urine Protein Negative, Urine Glucose (UA) Negative, Urine Ketones Negative, Urine Blood Negative, Urine Nitrate Negative, Urine Bilirubin Negative, Urine Urobilinogen Normal, Ur Leukocyte Esterase Negative, Urine RBC None seen, Urine WBC None seen, Ur Epithelial Cells None seen, Urine Bacteria None seen 03/12/19 04:55: WBC 10.1 D, RBC 4.21 L, Hgb 13.1 L, Hct 39.8 L, MCV 94.5, MCH 31.1 H, MCHC 32.9, RDW 13.6, Plt Count 330, MPV 8.9, Neutrophils % (Manual) 77 H, Lymphocytes % (Manual) 12 L, Monocytes % (Manual) 7, Neutrophils # (Manual) 7.8 H, Lymphocytes # (Manual) 1.2 L, Monocytes # (Manual) 0.7, Atypic/Reactive Lymphs 4 H, Platelet Estimate Normal, RBC Morphology Normal 03/12/19 04:55: Sodium 133, Plasma Sodium 133, Potassium 4.1, Chloride 100, Carbon Dioxide 30.9, Anion Gap 6.2 L, BUN 14, Creatinine 0.64, Est GFR (Non-Af Amer) 127, BUN/Creatinine Ratio 21.9 H, Random Glucose 110, Calcium 9.0, Calcium Adj for Albumin 10.0, Total Bilirubin 0.6, AST 38, ALT 20, Alkaline Phosphatase 95, Total Protein 6.4, Albumin 2.4 L 03/13/19 05:00: WBC 7.6 D, RBC 3.90 L, Hgb 11.9 L, Hct 36.4 L, MCV 93.3, MCH 30 .5, MCHC 32.7, RDW 13.6, Plt Count 288, MPV 9.0, Neutrophils % (Manual) 80 H, Lymphocytes % (Manual) 6 L, Monocytes % (Manual) 6, Eosinophils % (Manual) 4 H, Neutrophils # (Manual) 6.1 H, Lymphocytes # (Manual) 0.5 L, Monocytes # (Manual) 0.5, Eosinophils # (Manual) 0.3, Atypic/Reactive Lymphs 4 H, Dohle Bodies 3+, Platelet Estimate Normal 03/13/19 05:00: Sodium 133, Plasma Sodium 133, Potassium 3.7, Chloride 98, Carbon Dioxide 32.8 H, Anion Gap 5.9 L, BUN 17, Creatinine 0.62, Est GFR (Non-Af Amer) 132 H, BUN/Creatinine Ratio 27.4 H, Random Glucose 114 H, Calcium 8.9, Calcium Adj for Albumin 9.9, Total Bilirubin 0.5, AST 20, ALT 20, Alkaline Phosphatase 86, Total Protein 5.8 L, Albumin 2.3 L 03/14/19 11:10: pCO2 56.0 H, pO2 82.0 L, HCO3 32.2 H, Total CO2 34.0 H, Base Excess 5.7 H, ABG pH 7.38, ABG O2 Sat (Measured) 95.7 Discharge Location: Home Disposition: Home self-care Condition: Stable Discharge Activity: Activity as tolerated Discharge Diet: Low fat/chol Referrals: Mo Treviño MD [Primary Care Provider] - Additional Patient Instructions (free text): Follow up with PCP in 1 week, Complete Home Medications List: Complete Home Medication List: Atorvastatin Calcium [Lipitor] 20 mg PO HS 09/21/14 Finasteride [Proscar] 5 mg PO DAILY 09/21/14 Losartan/Hydrochlorothiazide [Hyzaar 50-12.5 Tablet] 1 ea PO DAILY 09/21/14 Metoprolol Succinate [Toprol Xl] 50 mg PO BID 09/21/14 Acetaminophen [Tylenol] 1,000 mg PO Q8H PRN #0 11/27/14 amLODIPine BESYLATE [Norvasc] 5 mg PO HS #0 11/27/14 tamsulosin 0.4 mg capsule 1 cap PO DAILY #30 cap 11/28/18 azithromycin 250 mg tablet 250 mg PO .COMPLEX #6 tab 03/07/19 cefdinir 300 mg capsule 300 mg PO BID 03/07/19 Benzonatate 200 mg PO TID PRN 03/09/19 HYDROcodone/CHLORPHEN P-STIREX [Hydrocodone-Chlorphen ER Susp] 5 ml PO Q12H 03/09/19 Travoprost [Travatan Z] 1 drp EACHEYE 03/09/19
[2019-03-15 16:41] VITALS: BP 123/61
== END 2019-03-15 17:20 | disposition home or self-care (01) | DRG 193 ==
LOC: LAB 15:17 → MS 15:17 → RAD 15:17
PROVIDERS: ADMIT Internal Medicine; ATTEND Internal Medicine
CPT/HCPCS: 36415; 36600; 71020; 71046; 80048; 80053; 81001; 82803; 85007; 85025; 87040; 87070; 87449; 87804; 94640; 94664; 97110; 97116; 97161; 99215; G0463